=== PATIENT | male | born 1950 | race American Indian/Alaskan Native ===

== ENCOUNTER 2017-06-15 06:21 | Observation (INO) | payer MEDICARE, OTHER ==
[2017-06-15] MEDS ORDERED: ECOTRIN PO ONE (06:51)
[2017-06-15] MEDS ORDERED: NACL 0.9% 500 ML 500 ML ONE (06:59)
[2017-06-15] MEDS ORDERED: NACL 0.9% 500 ML 500 ML IV SCH (07:00)
[2017-06-15 07:23] LABS: Basophils % (Auto) 0.2 % (0.0-1.8); Hemoglobin 12.7 gm/dl (11.8-15.2); Lymphocytes # (Auto) 0.9 K/mm3 (1.2-5.4); Lymphocytes % (Auto) 7.9 % (13.4-35.0); Mean Corpuscular HGB Conc 32 % (32-34); Mean Corpuscular Hemoglobin 28 pg (28-32); Mean Corpuscular Volume 89 fl (84-94); Monocytes # (Auto) 0.3 K/mm3 (0.0-0.8); Platelet Count 178 K/mm3 (140-440); Red Blood Count 4.51 M/mm3 (3.65-5.03); Red Cell Distribution Width 14.6 % (13.2-15.2)
[2017-06-15 07:34] LABS: INR 1.07 (0.87-1.13)
[2017-06-15 07:37] LABS: BUN/Creatinine Ratio 13; Blood Urea Nitrogen 13 mg/dL (9-20); Hemolysis Index 19
[2017-06-15] MEDS ORDERED: HEPARIN/NS 5000 UNIT/500ML(CATH LAB) 1,000 ML IR ONE (08:22)
[2017-06-15] MEDS ORDERED: NITROGLYCERIN SYRINGE 3 ML ONE (08:22)
[2017-06-15] MEDS ORDERED: HEPARIN 10,000 UNITS/10 ML ONE (08:22)
[2017-06-15] MEDS ORDERED: XYLOCAINE 2% INFILTRATI ONE (08:22)
[2017-06-15] MEDS ORDERED: CALAN ONE (08:22)
[2017-06-15] MEDS ORDERED: SUBLIMAZE ONE (08:23)
[2017-06-15] MEDS ORDERED: VERSED ONE (08:23)
[2017-06-15] MEDS ORDERED: ANGIOMAX IV ONE (09:07)
[2017-06-15] MEDS ORDERED: NACL 0.9% 100 ML ONE (09:08)
[2017-06-15] MEDS ORDERED: ATROPINE 0.1% (CARDIAC) ONE (09:33)
[2017-06-15] MEDS ORDERED: HEPARIN/NS 5000 UNIT/500ML(CATH LAB) 500 ML IR ONE (09:49)
[2017-06-15] MEDS ORDERED: AGGRASTAT DRIP (12.5 MG/250 ML) 12,500 MCG/250 ML BAG IV ONE (09:58)
[2017-06-15] MEDS: AGGRASTAT DRIP (12.5 MG/250 ML) 12,500 MCG/250 ML BAG IV SCH (10:10)
[2017-06-15] MEDS ORDERED: TRIDIL DRIP 50MG/250ML 50 MG/250 ML BOTTLE ONE (10:18)
[2017-06-15] MEDS ORDERED: PLAVIX ONE ×2 (10:23→10:39)
[2017-06-15] MEDS ORDERED: ALUM-MAG HYDROX-SIMETH 200-200-20MG/5ML ONE (10:41)
--- NOTE | 2017-06-15 10:42 | Cardiac Catherization Report ---
REFERRING PHYSICIAN: Minor Chandra MD INDICATION FOR PROCEDURE: The patient is a very pleasant 66-year-old -[place]iss gentleman, who has dyspnea on exertion, history of coronary disease, multiple PCIs, dyspnea on exertion, abnormal stress test with inferior ischemia, on multiple antianginal medications, who presents here for cardiac catheterization. He does have atrial fibrillation. Coumadin has been held. Risks, benefits, alternatives discussed prior to obtaining informed consent. PROCEDURE IN DETAIL: The patient was brought to the lab systems analyst in a postabsorptive state, prepped and draped in sterile fashion. Massimo's test in right hand was normal. A 2 mL of 2% lidocaine used to anesthetize the right wrist. A standard 6-German hydrophilic sheath used to cannulate the right radial artery via modified Seldinger technique. All exchanges were performed to exchange a J-tip guidewire. JL3.5 catheter used to engage left main. No dampening or ventricularization. Cineangiography performed in all projections. JR4 catheter used to cross the valve under fluoroscopic guidance. Left ventriculography from 30 MARIEE and 30 RWANDAN projections via hand injection, catheter flushed. Manual pullback performed with continuous pressure monitoring. Catheter used to engage the right coronary. No dampening or vegetation. Cineangiography performed in all projections. A JR4 catheter used to cross the aortic valve under fluoroscopic guidance. Left ventriculography performed in 30 MARIEE and 30 RWANDAN projections via hand injections, catheter flushed. Manual pullback performed with continuous pressure monitoring. Catheter used to engage the right coronary. No dampening or vegetation. Cineangiography performed in all projections. DATA: Aortic pressure is 130/70. LV pressure is 130, LVEDP of 15 mmHg. Left ventriculography revealed normal systolic performance with estimated ejection fraction of 55-60%. No evidence of aortic stenosis. CORONARY ANATOMY: 1. This is a right codominant system. Left main artery disease, bifurcates the left anterior descending and left circumflex. 2. Left circumflex is moderate sized vessel, courses AV groove. No significant disease. Mild luminal irregularities and left circumflex. 3. LAD is a moderate sized vessel, courses anterior intergroove, wraps around the apex. There are stents in the proximal mid LAD. There is a 30-40% stenosis in the mid segment. HERMINIO 3 flow calcified LAD. Right coronary has a long complex stenosis with a 90% stenosis in the mid segment. At this point, given his inferior ischemia on stress test symptoms despite antianginal decided to proceed with PCI. JR4 guide used to engage the right coronary without difficulty. [employer] [place] wire used to across the lesion without difficulty. We used a 2.5 x 12 balloon to predilate the lesion without difficulty. Improve angiographic characteristics. Unable due to tortuosity. We were unable to deploy the stent. At this point. Next, we used a 2.75 x 20 balloon to predilate the vessel, improve angiographic characteristics. We were able to deploy a 2.75 x 26 Resolute stent in the mid segment. At this point, there appears to be a dissection distally. Distal to the stent I replaced my wire to confirm intraluminal segment. HERMINIO 3 flow continued throughout. I placed stent distally 2.5 x 26 Resolute Integrity stent. This improved cover the dissection and resolved HERMINIO 3 flow. I postdilated the overlap between the 2 vessels. I turned my attention at this point the remainder of the lesion more proximally with a 2.75 x 26 Resolute drug-eluting stent and overlapped approximately 12 REMINGTON for 30 seconds. Next, I postdilated the overlap here as well. Next, intravascular ultrasound was performed, which revealed a well-opposed, well expanded stent. There appears to be a very small dissection in very distal vessel HERMINIO 3 flow remains. Given continued HERMINIO 3 flow to very small vessel, started Aggrastat. At this point, the patient is chest pain free, clinically hemodynamically stable and electrically stable. CONCLUSIONS: 1. Severe single vessel coronary disease with long complex 90% mid right coronary stenosis. Successful PCI with 3 overlapping drug-eluting stents, very small distal dissection HERMINIO 3 flow will treat medically. No other significant disease in the coronary tree aside from 30-40% mid LAD stenosis. 2. Preserved left ventricular systolic performance, estimated ejection fraction of 55-60%. 3. No evidence of aortic stenosis. At this point, standard radial care, will continue Aggrastat therapy. The patient received Angiomax and Angiomax has been stopped now. Aspirin, Plavix, no Effient due to history of stroke. Aggrastat therapy for a total of 18 hours. Again, he is clinically stable. We will watch him closely. Follow up here. Consider a.m. discharge. [facility]# [id number] SBM/NTS
--- NOTE | 2017-06-15 11:24 | Cardiac Catherization Report ---
ADDENDUM I directly supervised the administration of moderate sedation with fentanyl and Versed from 8:50 a.m. to 10:20 a.m. [facility]# [id number] YEIMI/NATHAN
[2017-06-15] MEDS: NEURONTIN PO SCH ×2 (14:02→21:32)
[2017-06-15] MEDS ORDERED: COUMADIN PO SCH (17:00)
[2017-06-15] MEDS: COREG PO SCH (21:31)
[2017-06-16 05:43] LABS: Basophils % (Auto) 0.2 % (0.0-1.8); Eosinophils % (Auto) 0.1 % (0.0-4.3); Hematocrit 39.3 % (35.5-45.6); Lymphocytes # (Auto) 1.1 K/mm3 (1.2-5.4); Lymphocytes % (Auto) 10.7 % (13.4-35.0); Mean Corpuscular HGB Conc 33 % (32-34); Mean Corpuscular Hemoglobin 29 pg (28-32); Mean Corpuscular Volume 88 fl (84-94); Monocytes # (Auto) 0.5 K/mm3 (0.0-0.8); Monocytes % (Auto) 4.6 % (0.0-7.3); Platelet Count 161 K/mm3 (140-440); Red Blood Count 4.46 M/mm3 (3.65-5.03); Red Cell Distribution Width 14.4 % (13.2-15.2)
[2017-06-16 05:53] LABS: INR 0.95 (0.87-1.13)
[2017-06-16 06:06] LABS: Creatine Kinase MB 14.5 ng/mL (0.0-4.0)
[2017-06-16 06:10] LABS: BUN/Creatinine Ratio 11; Blood Urea Nitrogen 11 mg/dL (9-20); Calcium 8.2 mg/dL (8.4-10.2); Hemolysis Index 21
[2017-06-16 06:20] VITALS: BP 125/71
[2017-06-16 06:22] LABS: Chol/HDL Ratio 3.42 %; HDL Cholesterol 35 mg/dL (40-59); LDL Cholesterol,Direct 71 mg/dL (50-130)
[2017-06-16] MEDS: AGGRASTAT DRIP (12.5 MG/250 ML) 12,500 MCG/250 ML BAG IV SCH (06:55)
--- NOTE | 2017-06-16 08:41 | XRay Report ---
CHEST ONE VIEW INDICATION: Post PCI. COMPARISON: None similar. FINDINGS: Portable, single, frontal chest radiograph demonstrates normal cardiomediastinal silhouette. Clear lungs. Unremarkable bones. Right hemidiaphragm minimally elevated. Extrinsic EKG leads. CONCLUSION: No acute disease in the chest. Thank you for the opportunity to participate in this patient's care.
[2017-06-16] MEDS: NEURONTIN PO SCH (09:54)
[2017-06-16] MEDS: COREG PO SCH (09:54)
[2017-06-16] MEDS ORDERED: PLAVIX PO SCH (10:00)
[2017-06-16] MEDS ORDERED: ZESTRIL PO SCH (10:00)
[2017-06-16] MEDS ORDERED: NORVASC PO SCH (10:00)
[2017-06-16] MEDS ORDERED: BABY ASPIRIN PO SCH (10:00)
[2017-06-16] MEDS ORDERED: FLOMAX PO SCH (10:00)
[2017-06-16] MEDS ORDERED: PROSCAR PO SCH (10:00)
--- NOTE | 2017-06-16 11:22 | Short Stay Summary ---
Short Stay Documentation Date of service: 06/16/17 - History H&P: obtained from office - Allergies and Medications Current Medications: Allergies aspirin Adverse Reaction (Intermediate, Unverified 06/15/17 08:02) Bleeding pt has had stomach ulcer and can only take entercoated aspirin IV DYE Adverse Reaction (Severe, Uncoded 06/15/17 08:02) Rash itching Home Medications Medication Instructions Recorded Confirmed Last Taken Type Aspirin [Lo-Dose Aspirin EC] 81 mg PO DAILY 06/15/17 06/15/17 06/15/17 05:00 History AtorvaSTATin [Lipitor] 40 mg PO QHS 06/15/17 06/15/17 06/14/17 History Finasteride [Proscar] 5 mg PO DAILY 06/15/17 06/15/17 06/14/17 History Gabapentin [Neurontin] 400 mg PO TID 06/15/17 06/15/17 06/14/17 History Gabapentin [Neurontin] 400 mg PO TID 06/15/17 06/15/17 06/14/17 History Lisinopril [Zestril] 20 mg PO DAILY 06/15/17 06/15/17 06/14/17 History Oxybutynin Chloride [Ditropan Xl] 10 mg PO QDAY 06/15/17 06/15/17 06/14/17 History Tamsulosin [Flomax] 0.4 mg PO QDAY 06/15/17 06/15/17 06/14/17 History Triamterene-Hctz 75-50 mg Tab 0.5 mg PO DAILY 06/15/17 06/15/17 06/14/17 History Warfarin [Coumadin] 10 mg PO QDAY 06/15/17 06/15/17 06/09/17 History amLODIPine [Norvasc] 10 mg PO DAILY 06/15/17 06/15/17 06/14/17 History Active Medications Amlodipine Besylate (Norvasc) 10 mg PO DAILY [facility] Last Admin: 06/16/17 09:54 Dose: 10 mg Aspirin (Baby Aspirin) 81 mg PO QDAY [facility] Last Admin: 06/16/17 09:54 Dose: 81 mg Atorvastatin Calcium (Lipitor) 40 mg PO QHS [facility] Last Admin: 06/15/17 21:30 Dose: 40 mg Carvedilol (Coreg) 25 mg PO BID [facility] Last Admin: 06/16/17 09:54 Dose: 25 mg Clopidogrel Bisulfate (Plavix) 75 mg PO QDAY [facility] Last Admin: 06/16/17 09:54 Dose: 75 mg Finasteride (Proscar) 5 mg PO DAILY [facility] Last Admin: 06/16/17 09:54 Dose: 5 mg Gabapentin (Neurontin) 400 mg PO TID [facility] Last Admin: 06/16/17 09:54 Dose: 400 mg Lisinopril (Zestril) 20 mg PO DAILY [facility] Last Admin: 06/16/17 09:54 Dose: 20 mg Tamsulosin HCl (Flomax) 0.4 mg PO QDAY [facility] Last Admin: 06/16/17 09:53 Dose: 0.4 mg Warfarin Sodium (Coumadin) 10 mg PO DAILY@1700 ANUP; Protocol Warfarin Sodium (Coumadin Pharmacy To Dose) 1 each PO PKCONSULT [facility] - Physical exam General appearance: no acute distress Integumentary: no rash, no growths, no abnormal pigmentation HEENT: Atraumatic, PERRLA Lungs: Clear to auscultation Heart: Regular rate, Normal S1, Normal S2 Gastrointestinal: normal, normoactive bowel sounds Extremities: no ischemia, pulses intact, pulses symmetrical, No edema Neurological: Normal gait, Normal speech, Strength at 5/5 X4 ext - Brief post op/procedure progress note Date of procedure: 06/15/17 Pre-op diagnosis: CAD Post-op diagnosis: same Procedure: LHC with PCI - see cath report Anesthesia: local Estimated blood loss: none Condition: stable - Hospital course Hospital course: pt presented for scheduled elective C and subsequently underwent PCI of RCA with 3 overlapping drug-eluting stents. pt was also noted to have small distal RCA dissection with HERMINIO 3 flow which is being treated medically. Pt was admitted for observation overnight and he remained clinically and hemodynamically stable throughout his admission. He is chest pain free and medically stable for discharge home today. - Disposition Condition at discharge: Stable Disposition: DC-01 TO HOME OR SELFCARE - Discharge Diagnoses (1) CAD (coronary artery disease) Status: Chronic (2) Stented coronary artery Status: Chronic (3) Atrial fibrillation Status: Chronic (4) HTN (hypertension) Status: Chronic (5) Hyperlipidemia Status: Chronic (6) Diabetes Status: Chronic Short Stay Discharge Plan Activity: advance as tolerated Diet: low fat, low cholesterol, low salt Wound: open to air, keep clean and dry, per your surgeon's advice Follow up with: GHADA VICENTE MD [Primary Care Provider] - 7 Days MARIA D CHANDRA MD [Staff Physician] - 7 Days ([place] office with Dr. SHERRY Chandra on 07/14/2017 @ 2:45PM) Forms: Warfarin Discharge Instruction Prescriptions: Clopidogrel [Plavix] 75 mg PO QDAY #60 tablet
== END 2017-06-16 14:30 | disposition home or self-care (01) ==
LOC: CATHLABREC 06:21 → 4A 11:35
PROVIDERS: ADMIT Internal Medicine; ATTEND Internal Medicine
DX: I25.10 Atherosclerotic heart disease of native coronary artery without angina pectoris (principal); I10 Essential (primary) hypertension; E11.9 Type 2 diabetes mellitus without complications; I34.0 Nonrheumatic mitral (valve) insufficiency; I48.2 Chronic atrial fibrillation; E78.4 Other hyperlipidemia; I07.1 Rheumatic tricuspid insufficiency; R93.1 Abnormal findings on diagnostic imaging of heart and coronary circulation
CPT/HCPCS: 36415; 71045; 80048; 80061; 82550; 82553; 82962; 84484; 85025; 85347; 85610; 85730; 92978; 93005; 93010; 93458; 96365; 96366; A9270; C1725; C1753; C1769; C1874; C1887; C1894; C9600; G0378; J0583; J1644; J2250; J3010; J3246; J7040; 92928; 96368; J0461; Q9967